=== PATIENT | female | born 1975 | race Caucasian/White ===

== ENCOUNTER → 2016-08-13 | Outpatient (CLI) | payer OTHER ==
[2015-05-26 11:30] VITALS: BP 113/74
[~2016-08-13] MED LIST: BACL10TA PO; ESTR2TAB PO; LOSA100T6 PO; MULT-206 PO; ONDA8TAB9 PO; PROG100C2 PO; [UNRECOGNIZED DRUG - CODE] IM; [UNRECOGNIZED DRUG - CODE] PO
--- NOTE | 2016-08-13 14:08 | KCIC ---
PROCEDURE MR of the right knee HISTORY Right knee pain medially and laterally. Pain for weeks. COMPARISON Report is available from prior study of March 04, 2011, but only limited images are available from that exam. FINDINGS Radial tear at the posterior horn and root of the medial meniscus, measures 10 millimeter wide. Remaining meniscus is distorted, and extruded from the joint compartment. No evidence of a lateral meniscal tear. Anterior and posterior cruciate ligaments are intact. Medial collateral ligament intact. Iliotibial band unremarkable. Fibular collateral ligament, biceps femoris tendon and popliteus tendon are intact. Extensor mechanism is intact. 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 Small full-thickness articular cartilage defect at the weight-bearing lateral femoral condyle measures 6 millimeters AP by 4 millimeters wide. Moderate patellofemoral joint chondromalacia. No bone lesion or acute fracture. No acute soft tissue injury. Minimal anterior subcutaneous edema. Large joint effusion. IMPRESSION 1. Medial meniscal tear. Only limited images available from prior study, but this does appear to be a new finding. 2. 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 This may be slightly progressed at the medial compartment. 3. Small full-thickness articular cartilage defect of the weight-bearing lateral femoral condyle, not seen on the prior study. Electronically signed by: Kai Christensen MD (August 13, 2016 14:07:30)
== END | disposition home or self-care (01) ==
LOC: KCIC MRI 11:53
PROVIDERS: ATTEND Orthopaedic Surgery
DX: M25.561 Pain in right knee (principal)
CPT/HCPCS: 73721

== ENCOUNTER 2016-09-15 23:01 | Emergency (ER) | payer OTHER ==
[~2016-09-15] VITALS: Ht 167.6 cm; Wt 122.5 kg
[~2016-09-15 23:01] MED LIST changes: +OXYC-317 PO; -[UNRECOGNIZED DRUG - CODE] PO
[2016-09-15] MEDS ORDERED: ONDANSETRON PF 4 MG/2 ML VIAL. IV ONE (23:30)
--- NOTE | 2016-09-15 23:37 | PHYS DOC ---
Past Medical History Past Medical History: Hypertension Past Surgical History: Cholecystectomy, Hysterectomy, Other Additional Past Surgical Histo: Rt.elbow,culposcopy Alcohol Use: Rarely Drug Use: None Adult General Chief Complaint Chief Complaint: POST-OP PROBLEM HPI HPI Patient is a 41 year old female who presents with right calf pain. Patient is 2 weeks status post right knee arthroscopic meniscus repair by Dr. Kenney. States today she had onset of severe pain to right calf radiating to right thigh. She felt short of breath today, denies chest pain. Denies any new knee pain although she has been having pain since time of surgery. Denies fevers or chills , cough, erythema/warmth/swelling of the knee, calf swelling, purulent drainage from incision. She denies history of DVT or PE. No recent travel, takes estrogen status post hysterectomy and oophorectomy, nonsmoker. PCP is Dr. Hernández. Review of Systems Review of Systems Constitutional: Denies fever or chills HENT: Denies nasal congestion or sore throat Respiratory: Denies cough or shortness of breath Cardiovascular: Denies chest pain or edema GI: Denies abdominal pain, nausea, vomiting Musculoskeletal: Reports right lower extremity pain Integument: Denies rash or skin lesions Neurologic: Denies headache, focal weakness or sensory changes Current Medications Current Medications Current Medications Medications (Trade) Dose Ordered Sig/Dashawn Start Time Stop Time Status Last Admin Dose Admin Acetaminophen/ Hydrocodone Bitart (Lortab 5/325) 2 tab 1X ONCE 09/16/16 02:15 09/16/16 02:16 DC 09/16/16 02:14 2 TAB Fentanyl Citrate (Fentanyl 2ml Vial) 50 mcg PRN Q15MIN PRN 09/15/16 23:30 09/16/16 02:20 DC 09/16/16 01:15 50 MCG Ondansetron HCl (Zofran) 4 mg 1X ONCE 09/15/16 23:30 09/15/16 23:31 DC 09/15/16 23:44 4 MG Allergies Allergies Allergies Coded Allergies Type Severity Reaction Last Updated Verified Penicillins Allergy Severe 05/25/15 Yes mushroom Allergy Severe 05/25/15 Yes Sulfa (Sulfonamide Antibiotics) Allergy Intermediate 05/25/15 Yes tramadol Allergy Intermediate 05/25/15 Yes lisinopril Allergy Mild 05/25/15 Yes Physical Exam Physical Exam Constitutional: Obese, no acute distress, non-toxic appearance. HENT: Normocephalic, atraumatic, bilateral external ears normal, oropharynx moist, nose normal. Eyes: conjunctiva normal, no discharge. Neck: supple, no stridor. Cardiovascular: RRR, no murmurs, no edema. Lungs & Thorax: LCTAB, no wheezing, no respiratory distress. Abdomen: soft, nontender, nondistended. Skin: Warm, dry, no erythema, no rash. Back: No tenderness. Extremities: Right lower extremity no swelling or deformity, no obvious asymmetry between right and left calf, calf tenderness present on the right, mild swelling of the knee without erythema or warmth or focal tenderness, 2 surgical incisions with intact Steri-Strips, no surrounding erythema/warmth/ swelling, no purulent drainage, DP/PT 2+, sensation intact to the foot Neurologic: Alert and oriented X 3, no focal deficits noted. Psychologic: Affect normal, judgement normal, mood normal. Current Patient Data Vital Signs Vital Signs Date Time Temp Pulse Resp B/P (MAP) Pulse Ox O2 Delivery O2 Flow Rate FiO2 09/16/16 02:00 96 145/83 (103) 97 Room Air 09/16/16 01:30 20 09/15/16 23:13 98.3 98.3 Lab Values Laboratory Tests Test 09/15/16 23:35 White Blood Count 10.0 x10^3/uL (4.0-11.0) Red Blood Count 4.53 x10^6/uL (3.50-5.40) Hemoglobin 12.9 g/dL (12.0-15.5) Hematocrit 38.6 % (36.0-47.0) Mean Corpuscular Volume 85 fL (79-100) Mean Corpuscular Hemoglobin 29 pg (25-35) Mean Corpuscular Hemoglobin Concent 34 g/dL (31-37) Red Cell Distribution Width 14.7 % (11.5-14.5) H Platelet Count 363 x10^3/uL (140-400) Neutrophils (%) (Auto) 65 % (31-73) Lymphocytes (%) (Auto) 26 % (24-48) Monocytes (%) (Auto) 7 % (0-9) Eosinophils (%) (Auto) 1 % (0-3) Basophils (%) (Auto) 1 % (0-3) Neutrophils # (Auto) 6.4 x10^3uL (1.8-7.7) Lymphocytes # (Auto) 2.6 x10^3/uL (1.0-4.8) Monocytes # (Auto) 0.7 x10^3/uL (0.0-1.1) Eosinophils # (Auto) 0.1 x10^3/uL (0.0-0.7) Basophils # (Auto) 0.1 x10^3/uL (0.0-0.2) Prothrombin Time 13.8 SEC (11.7-14.0) Prothrombin Time INR 1.1 (0.8-1.1) PTT 29 SEC (24-38) Sodium Level 139 mmol/L (136-145) Potassium Level 3.8 mmol/L (3.5-5.1) Chloride Level 101 mmol/L (98-107) Carbon Dioxide Level 30 mmol/L (21-32) Anion Gap 8 (6-14) Blood Urea Nitrogen 9 mg/dL (7-20) Creatinine 0.8 mg/dL (0.6-1.0) Estimated GFR (Cockcroft-Gault) 79.4 Glucose Level 127 mg/dL (70-99) H Calcium Level 9.1 mg/dL (8.5-10.1) Laboratory Tests 09/15/16 23:35 Laboratory Tests 09/15/16 23:35 EKG EKG Interpreted by me: Normal sinus rhythm rate 91, no ST elevation, T waves inverted in leads V1 and V2 without ST depression, normal intervals, no ectopy. [] Radiology/Procedures Radiology/Procedures PROCEDURE: VENOUS LOWER EXTREMITY RIGHT Right lower extremity venous Doppler: Reason for examination: Right calf pain. Status post knee surgery on 09/06/2016. The right lower extremity venous system was evaluated from the common femoral and greater saphenous veins distally to the calf veins with grayscale imaging, color-flow imaging and spectral analysis. There is normal blood flow. There is no evidence of deep venous thrombosis. There is normal response of the venous system to compression and augmentation. IMPRESSION: No deep venous thrombosis in the right lower extremity. Electronically signed by: Meme Benites MD (09/16/2016 1:29 AM) DICTATED and SIGNED BY: MEME BENITES MD DATE: 09/16/16 0128 Chest x-ray: Interpreted by me: Mild cardiomegaly, no infiltrate, no pneumothorax[] Course & Med Decision Making Course & Med Decision Making Pertinent Labs and Imaging studies reviewed. (See chart for details) Patient presents with calf pain after recent surgery. Gave pain medication. Ordered ultrasound to evaluate for DVT which was negative. She felt short of breath. Initially tachycardic at 102. Improved to less than 100 with treatment of pain. In the absence of DVT & with normalization of heart rate with normal oxygen saturation, I have very low suspicion for PE. She felt better after pain meds here. Recommend rest, elevation, gave prescription for norco for pain. Recommend contacting Dr. Kenney in the morning for follow up appointment. May benefit from repeat ultrasound in 2 days if symptoms persist. Come back for severe chest pain or shortness of breath, signs of septic arthritis, any otherwise worsening condition. Discharged home in stable condition. [] Dragon Disclaimer Dragon Disclaimer This electronic medical record was generated, in whole or in part, using a voice recognition dictation system. Departure Departure Impression: Primary Impression: Lower extremity pain Disposition: 01 HOME, SELF-CARE Condition: STABLE Referrals: LEELA HERNÁNDEZ MD (PCP) Patient Instructions: Deep Vein Thrombosis Additional Instructions: You were seen in the emergency department today for leg pain. The ultrasound did not show blood clot. I am attaching additional information about this condition see you know what to watch for. Take pain medication as needed. No drinking alcohol or driving while taking this medication. Try to keep leg elevated. Please follow-up with Dr. Kenney within 2-3 days if possible. Return to the emergency department first. Shortness of breath or chest pain, any otherwise worsening condition. Scripts Hydrocodone/Apap 5-325 (NORCO 5-325 TABLET) 1 Each Tablet 1 TAB PO PRN Q6HRS Y for PAIN, #10 TAB 0 Refills Prov: MARIANO BUSH MD 09/16/16 MARIANO BUSH MD Sep 15, 2016 23:36
[2016-09-15 23:38] LABS: BASO # 0.1 x10^3/uL (0.0-0.2); BASO % 1 % (0-3); EOS % 1 % (0-3); HEMATOCRIT 38.6 % (36.0-47.0); HEMOGLOBIN 12.9 g/dL (12.0-15.5); LYMPH # 2.6 x10^3/uL (1.0-4.8); LYMPH % 26 % (24-48); MEAN CORPUSCULAR HEMOGLOBIN 29 pg (25-35); MEAN CORPUSCULAR HGB CONC 34 g/dL (31-37); MEAN CORPUSCULAR VOLUME 85 fL (79-100); MONO % 7 % (0-9); NEUT % 65 % (31-73); PLATELET COUNT 363 x10^3/uL (140-400); RED BLOOD COUNT 4.53 x10^6/uL (3.50-5.40); RED CELL DISTRIBUTION WIDTH 14.7 % (11.5-14.5)
[2016-09-15] MEDS: fentaNYL PF VIAL 100 MCG/2 ML VIAL IV PRN (23:44)
[2016-09-15 23:47] LABS: INR 1.1 (0.8-1.1); PROTHROMBIN TIME PATIENT 13.8 SEC (11.7-14.0)
[2016-09-15 23:49] LABS: CALCIUM 9.1 mg/dL (8.5-10.1); CREATININE 0.8 mg/dL (0.6-1.0); GFR 79.4; POTASSIUM 3.8 mmol/L (3.5-5.1)
[2016-09-16] MEDS: fentaNYL PF VIAL 100 MCG/2 ML VIAL IV PRN (01:15)
--- NOTE | 2016-09-16 01:33 | RAD ---
Right lower extremity venous Doppler: Reason for examination: Right calf pain. Status post knee surgery on 09/06/2016. The right lower extremity venous system was evaluated from the common femoral and greater saphenous veins distally to the calf veins with grayscale imaging, color-flow imaging and spectral analysis. There is normal blood flow. There is no evidence of deep venous thrombosis. There is normal response of the venous system to compression and augmentation. IMPRESSION: No deep venous thrombosis in the right lower extremity. Electronically signed by: Meme Tinajero MD (09/16/2016 1:29 AM)
[2016-09-16 02:00] VITALS: BP 145/83
[2016-09-16] MEDS ORDERED: HYDR-971 PO (02:07)
[2016-09-16] MEDS ORDERED: HYDROcodone/APAP 5/325MG 1 TAB TABLET PO ONE (02:15)
--- NOTE | 2016-09-16 06:23 | EKG ---
[facility] [address] [place] [address] Test Date: 2016-09-15 Test Time: 23:45:32 Pat Name: LENORE SÁNCHEZ Department: Room: Gender: F [employer]: : 1975 Requested By: MARIANO BUSH Order Number: [id number] Reading MD: Edith Jiménez Measurements Intervals [place] Rate: 91 P: 46 CO: 148 QRS: 48 QRSD: 86 T: 53 QT: 346 QTc: 427 Interpretive Statements SINUS RHYTHM NORMAL ECG RI6.01 Compared to ECG 05/16/2015 15:40:59 No significant changes Electronically Signed On 09-19-2016 22:15:50 CDT by Edith Jiménez
--- NOTE | 2016-09-16 07:26 | RAD ---
Portable chest, 09/15/2016: History: Shortness of breath Comparison is made to a study from 05/16/2015. The heart size and pulmonary vascularity are normal. No pulmonary infiltrates are seen. There is no evidence of pleural fluid. IMPRESSION: No acute cardiopulmonary abnormality is detected.
== END 2016-09-16 02:19 | disposition home or self-care (01) ==
LOC: ER 23:01
DX: M79.661 Pain in right lower leg (principal); R00.0 Tachycardia, unspecified; I10 Essential (primary) hypertension; E66.9 Obesity, unspecified; Z88.0 Allergy status to penicillin; Z90.49 Acquired absence of other specified parts of digestive tract; Z90.710 Acquired absence of both cervix and uterus; Z98.890 Other specified postprocedural states; Z88.5 Allergy status to narcotic agent; Z88.8 Allergy status to other drugs, medicaments and biological substances; Z88.2 Allergy status to sulfonamides; Z91.018 Allergy to other foods; Z68.41 Body mass index [BMI] 40.0-44.9, adult
CPT/HCPCS: 36415; 71010; 80048; 85027; 85610; 85730; 93005; 93971; 96374; 96375; 96376; 99285; J2405; J3010

== ENCOUNTER → 2017-06-25 | Outpatient (CLI) | payer OTHER | END | disposition home or self-care (01) | LOC: KCIC MAMMO 12:43 | DX: Z12.31 Encounter for screening mammogram for malignant neoplasm of breast (principal) | CPT/HCPCS: 77067 ==

== ENCOUNTER → 2018-03-10 | Outpatient (CLI) | payer OTHER ==
[~2018-03-10] MED LIST changes: +HYDR-3164 PO; -LOSA100T6 PO; +LOSA100T7 PO
--- NOTE | 2018-03-10 12:03 | RAD ---
EXAM: Right lower extremity venous Doppler sonogram. HISTORY: Pain and swelling. TECHNIQUE: Vera scale and color Doppler sonographic evaluation of the right lower extremity veins with spectral waveform analysis was performed. FINDINGS: There is normal color flow, normal compressibility and there are normal spectral waveforms in the common femoral, superficial femoral, popliteal, posterior tibial and greater saphenous veins. IMPRESSION: No Doppler evidence of lower extremity deep venous thrombosis. Electronically signed by: Kendal Rodriguez MD (03/10/2018 11:59 AM) [id number]
== END | disposition home or self-care (01) ==
LOC: US 11:09
PROVIDERS: ATTEND Orthopaedic Surgery
DX: M79.89 Other specified soft tissue disorders (principal)
CPT/HCPCS: 93971

== ENCOUNTER → 2018-07-01 | Outpatient (CLI) | payer OTHER ==
[~2018-07-01] MED LIST changes: +CONTRAST GIVEN. MC PRN; +IOHEXOL 240 MG/ML 50ML VIAL. PO ONE; +IOHEXOL 300 MG/ML 100ML VIAL. IV ONE; +LOSA100T14 PO; -LOSA100T7 PO
--- NOTE | 2018-07-01 14:23 | KCIC ---
EXAM: CT Abdomen and Pelvis with IV contrast CLINICAL HISTORY: History of diverticulitis. Left lower quadrant abdominal pain. COMPARISON: none TECHNIQUE: Helical CT of the abdomen and pelvis was performed following the administration of intravenous contrast. Axial, coronal and sagittal reformatted images were generated. PQRS compliance statement - One or more of the following individualized dose reduction techniques were utilized for this study: 1. Automated exposure control 2. Adjustment of the mA and/or kV according to patient size 3. Use of iterative reconstruction technique FINDINGS: Exam is mildly limited given CT beam attenuation and quantum mottling from associated prominence overlying soft tissues. Lower chest: Linear opacities in the lingula and lower lobes likely scarring/atelectasis. Lung bases are otherwise clear. Abdomen and Pelvis: Relative hepatic hypodensity is most consistent with hepatic steatosis. The liver is enlarged measuring 19.4 cm in length. Accounting for postcholecystectomy change, no biliary ductal dilatation. Spleen is unremarkable. Adrenal glands and pancreas are unremarkable. Symmetric nephrograms. No focal renal lesion. No hydronephrosis. Appendix is normal. No small or large bowel dilatation. Moderate colonic stool content. Small fat-containing periumbilical hernia. No abdominal or pelvic ascites. No abdominal or pelvic lymphadenopathy. Bladder is compressed. Aorta is normal in caliber throughout. 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 IMPRESSION: 1. No evidence for acute appendicitis. 2. No evidence for bowel obstruction 3. Moderate colonic stool content. No definite associated diverticulitis or colitis. 4. Hepatomegaly and hepatic steatosis. Electronically signed by: Orville Houser MD (07/01/2018 2:20 PM) [facility]
--- NOTE | 2018-07-01 16:26 | KCIC ---
CHEST PA LATERAL CLINICAL INDICATION: Persistent cough COMPARISON: None FINDINGS: Heart is normal in size. Prominent bilateral bronchovascular markings are seen. No focal consolidation. No pneumothorax or pleural effusion. Visualized bony thorax within normal limits. IMPRESSION: Mild bronchitis. Electronically signed by: Emeka Clifford DO (07/01/2018 4:23 PM) [facility]
== END | disposition home or self-care (01) ==
LOC: KCIC CT 12:43
PROVIDERS: ATTEND Physician Assistant Medical
DX: K76.0 Fatty (change of) liver, not elsewhere classified (principal); K42.9 Umbilical hernia without obstruction or gangrene; J40 Bronchitis, not specified as acute or chronic; R16.0 Hepatomegaly, not elsewhere classified; I10 Essential (primary) hypertension; Z87.19 Personal history of other diseases of the digestive system
CPT/HCPCS: 71046; 74177; Q9966; Q9967

== ENCOUNTER 2018-10-13 05:51 | Day surgery (SDC) | payer OTHER ==
[~2018-10-13] VITALS: Ht 165.1 cm; Wt 127.8 kg
[~2018-10-13 05:51] MED LIST changes: -CONTRAST GIVEN. MC PRN; +ESTR-9 TD; +HYDR-2765 PO; +HYDR10SY16 PO; -IOHEXOL 240 MG/ML 50ML VIAL. PO ONE; -IOHEXOL 300 MG/ML 100ML VIAL. IV ONE; +LOSA1TAB25 PO; +MELO15TA23 PO; +OMEP20TA8 PO; +PROG100C10 PO; -PROG100C2 PO
[2018-10-13] MEDS ORDERED: CLINDAMYCIN 900MG PREMIX 50 ML IV PRN (06:00)
[2018-10-13] MEDS ORDERED: BUPIVACAINE 0.25% 50 ML VIAL. ONE (06:03)
[2018-10-13] MEDS ORDERED: EPINEPHrine VIAL 30 MG/30 ML VIAL ONE (06:03)
[2018-10-13] MEDS ORDERED: IV RINGERS,LACTATED 1000ML 1,000 ML IV SCH (07:00)
[2018-10-13] MEDS ORDERED: ONDANSETRON PF 4 MG/2 ML VIAL. IV PRN (07:00)
[2018-10-13] MEDS ORDERED: fentaNYL PF VIAL 100 MCG/2 ML VIAL IV PRN ×2 (07:00)
[2018-10-13] MEDS ORDERED: PROCHLORPERAZINE 10 MG/2 ML VIAL. IV PRN (07:00)
[2018-10-13] MEDS ORDERED: LIDOCAINE 1% PF 2 ML VIAL. ID PRN (07:00)
[2018-10-13] MEDS ORDERED: MIDAZOLAM HCL/PF 2 MG/2 ML VIAL. ONE (07:02)
[2018-10-13] MEDS ORDERED: fentaNYL PF VIAL 100 MCG/2 ML VIAL ONE ×2 (07:02→09:01)
[2018-10-13] MEDS ORDERED: PHENYLEPHRINE in 0.9% NACL PF 1 MG/10 ML SYRINGE. IV ONE (07:03)
[2018-10-13] MEDS ORDERED: ONDANSETRON PF 4 MG/2 ML VIAL. ONE (07:03)
[2018-10-13] MEDS ORDERED: DEXAMETHASONE SOD PHOS 4 MG/ML VIAL ONE (07:03)
[2018-10-13] MEDS ORDERED: LIDOCAINE 2% PF 5 ML VIAL. ONE (07:03)
[2018-10-13] MEDS ORDERED: PROPOFOL 20 ML IV ONE (07:03)
--- NOTE | 2018-10-13 09:01 | PDOC4 ---
Operative Note Operative Note Date of Procedure: October 13, 2018 Preoperative Diagnosis: right knee, painful total knee arthroplasty T84.84XA Postoperative Diagnosis: same Procedures Performed: right knee arthroscopy with synovectomy CPT 90271 Surgeon: � Tremayne Kenney MD Anesthesia: General Estimated Blood Loss: 5 mL Specimens: � Right knee synovial fluid for aerobic, anaerobic, fungal, and AFB Drains: none Complications: none Tourniquet time: � 28 minutes Findings: Synovitis anteriorly which was resected, and thick medial plica which was resected along with meniscal remnants which seemed to be impinging at the tibiofemoral joint medially and laterally and were resected. The implants are also well fixed and stable. There is enough laxity to allow scope examination of the tibiofemoral joint similar to a [place] knee, but may indicate laxity of the knee arthroplasty. Indications for Procedure: The patient is a 43-year-old previous right total knee arthroplasty. She now has some mechanical symptoms and popping, and on examination she has synovitis anteriorly. An aspiration was attempted in the office but I did not retrieve any fluid. She also has a mild sensation of instability, and we can further evaluate that arthroscopically, although she knows where not prepared today to do any revision. I recommended arthroscopic synovectomy and scar tissue removal, possible plica excision and similar anterior fat pad synovectomy to help relieve her symptoms, and to take an arthroscopic specimen to rule out infection. We talked about the risks and benefits of proceeding with an arthroscopic proc edure. We talked about potential risks of ongoing pain, bleeding, infection, blood clots, continued symptoms requiring additional surgery or other potential surgical or anesthetic complications. All of the patient's questions about surgery were answered and she desired to proceed. Written consent was obtained. Description of Operation: The patient was identified in the preoperative holding area. The correct right knee was marked by me. The patient was taken to the operating room, where a general anesthetic was used. Preoperative antibiotics were given intravenously. A tourniquet was placed on the upper thigh. A time-out procedure was performed. The limb was prepared sterile fashion and sterile drapes were applied. �The limb was exsanguinated with an Esmarch bandage and the tourniquet was inflated to 350 mm Hg. exam under anesthesia showed slight varus/valgus laxity 3-4 mm, as well as anterior drawer translation of 4 mm at 90 degrees of flexion. Lateral and medial arthroscopy portals were established using her previous arthroscopy portals. Synovial fluid was retrieved, approximately 5 mL, which was sent in specimen cup for aerobic, anaerobic, fungal, and AFB. The medial tibiofemoral joint showed thick anterior plica, and there were some meniscal synovitis remnants which seemed to be impinging at the medial tibiofemoral joint. There is enough laxity to allow the scope to visualize the tibial polyethylene, similar to what is seen in a [place] knee, perhaps 4 mm of opening with valgus stress. The thickened scarred plica synovium was excised with a basket forceps and the shaver, and the remaining meniscal remnants and synovium were removed from the tibiofemoral joint with the shaver. There was no mechanical breakdown or any noticeable wear of the polyethylene or the femoral component. The intercondylar notch showed an intact posterior from the Journey II knee, and no loose bodies. The lateral tibiofemoral joint again showed meniscal remnant synovitis, and this was removed with a shaver. There is enough laxity to allow the arthroscope to visualize the tibial polyethylene, similar to what is seen in a [place] knee, well balanced with the medial side. The patellofemoral joint showed synovitis at the distal pole of the patella and this was resected with the basket forceps and with the motorized shaver. The patellar component is well fixed and stable to probing. There is no appreciable wear or any breakdown of the patellar polyethylene component. I did not see any loose cement fragments. There were no apparent loose bodies. The suprapatellar pouch medial lateral gutters were clear of cement fragments or loose bodies. Copious irrigation was used, and the knee was drained of fluid. The incisions were closed with 3-0 Prolene interrupted suture. 50 mL of 0.25% bupivacaine with epinephrine was injected. A bulky sterile dressing was applied and the tourniquet was released. Needle and sponge counts were correct and there were no apparent complications. Tremayne Kenney MD 10/13/2018 8:59 AM TREMAYNE KENNEY MD Oct 13, 2018 09:01
[2018-10-13] MEDS ORDERED: OXYC1TAB15 PO (09:11)
[2018-10-13] MEDS ORDERED: PROM25TA10 PO (09:13)
[2018-10-13 09:47] VITALS: BP 124/74
[2018-10-13] MEDS ORDERED: oxyCODONE/APAP 5/325 1 TAB TABLET PO ONE ×2 (10:00)
== END 2018-10-13 10:30 | disposition home or self-care (01) ==
LOC: SURG 05:51
PROVIDERS: ATTEND Orthopaedic Surgery
DX: M65.861 Other synovitis and tenosynovitis, right lower leg (principal); M25.861 Other specified joint disorders, right knee; M67.51 Plica syndrome, right knee; I10 Essential (primary) hypertension; Z90.710 Acquired absence of both cervix and uterus; Z90.49 Acquired absence of other specified parts of digestive tract; Z96.651 Presence of right artificial knee joint
CPT/HCPCS: 29876; 87071; 87075; 87102; 87116; A7015; C1782; J0171; J0780; J1100; J2001; J2250; J2370; J2405; J2704; J3010; J3490

== ENCOUNTER → 2019-03-02 | Outpatient (CLI) | payer MEDICAID ==
[~2019-03-02] MED LIST changes: +OXYC1TAB15 PO; +PROM25TA10 PO
--- NOTE | 2019-03-02 19:52 | KCIC ---
Bilateral digital screening mammograms: Reason for examination: Routine screening. Comparison is made to previous study dated 06/25/2017. Interpretation is made with the benefit of CAD. The skin and nipples show no abnormalities. No abnormal lymph nodes are seen. The breast parenchyma is predominantly fatty. (Breast density: Category A.) There are no dominant masses, suspicious calcifications or architectural distortions. Impression: No evidence of malignancy. Recommend routine screening. BI-RADS Category 1: Negative. "Our facility is accredited by the [employer] Mammography Program." This patient's information has been entered into a reminder system for the patient to be notified with the results of her examination and a target date for the next mammogram. Electronically signed by: Meme Tinajero MD (03/02/2019 7:49 PM) [id number]
== END | disposition home or self-care (01) ==
LOC: KCIC MAMMO 10:50
PROVIDERS: ATTEND Family Medicine
DX: Z12.31 Encounter for screening mammogram for malignant neoplasm of breast (principal)
CPT/HCPCS: 77067

== ENCOUNTER 2019-11-28 18:58 | Emergency (ER) | payer MEDICAID ==
[~2019-11-28] VITALS: Ht 165.1 cm; Wt 108.0 kg
[~2019-11-28 18:58] MED LIST changes: +METF500T16 PO; +SITA100T PO; +SITA50TA PO
[2019-11-28] MEDS ORDERED: HYDROmorphone 2 MG/ML VIAL IV ONE (19:45)
--- NOTE | 2019-11-28 19:45 | PHYS DOC ---
Past Medical History Past Medical History: Diabetes-Type II, GERD, Hypertension Past Surgical History: Cholecystectomy, Hysterectomy, Other Additional Past Surgical Histo: Rt.elbow,culposcopy Smoking Status: Never Smoker Alcohol Use: Rarely Drug Use: None General Adult EDM: Chief Complaint: ABDOMINAL PAIN HPI: HPI: Patient is a 44 year old female who presents with lower abdominal pain. Patient reports that about 10 days ago she began to have pain in the lower abdomen. At first her and her doctor thought she was suffering from a urinary tract infection. However the pain moved on Friday and became centered around the left side. She denied any fever, chills or sweats does complain of some nausea with the decrease in appetite but denies diarrhea, melena or hematochezia. She vomited 2 or 3 days ago x1 but since then has not. Patient has been changed to 2 antibiotics Cipro and Flagyl and has been on this medica tion for 48 hours. Patient has not improved and continues to have pain. She is here for further evaluation and possible admission. Review of Systems: Review of Systems: Constitutional: Denies fever or chills. [] Eyes: Denies change in visual acuity. [] HENT: Denies nasal congestion or sore throat. [] Respiratory: Denies cough or shortness of breath. [] Cardiovascular: Denies chest pain or edema. [] GI: See HPI [] : Denies dysuria. [] Musculoskeletal: Denies back pain or joint pain. [] Integument: Denies rash. [] Neurologic: Denies headache, focal weakness or sensory changes. [] Endocrine: Denies polyuria or polydipsia. [] Lymphatic: Denies swollen glands. [] Psychiatric: Denies depression or anxiety. [] Heart Score: Risk Factors: Risk Factors: DM, Current or recent (<one month) smoker, HTN, HLP, family history of CAD, obesity. Risk Scores: Score 0 - 3: 2.5% MACE over next 6 weeks - Discharge Home Score 4 - 6: 20.3% MACE over next 6 weeks - Admit for Clinical Observation Score 7 - 10: 72.7% MACE over next 6 weeks - Early Invasive Strategies Allergies: Allergies: Allergies Coded Allergies Type Severity Reaction Last Updated Verified Penicillins Allergy Severe HIVES,HARD TO BREATH 10/13/18 Yes Sulfa (Sulfonamide Antibiotics) Allergy Severe SAME WITH PCN PLUS THROAT SHUT 05/04/19 Yes amoxicillin Allergy Severe HIVES, HARD TO BREATH 05/04/19 Yes mushroom Allergy Severe THROAT SHUT DOWN 10/13/18 Yes tramadol Allergy Intermediate BAD HIVES, VOMITING 10/13/18 Yes lisinopril Allergy Mild COUGH 10/13/18 Yes Physical Exam: PE: Constitutional: Well developed, well nourished, no acute distress, non-toxic appearance. [] HENT: Normocephalic, atraumatic, bilateral external ears normal, oropharynx moist, no oral exudates, nose normal. [] Eyes: PERRLA, EOMI, conjunctiva normal, no discharge. [] Neck: Normal range of motion, no tenderness, supple, no stridor. [] Cardiovascular:Heart rate regular rhythm, no murmur [] Lungs & Thorax: Bilateral breath sounds clear to auscultation [] Abdomen: Normal bowel sounds, soft, tenderness in the left lower quadrant without guarding or rebound, no hepatosplenomegaly or masses. [] Skin: Warm, dry, no erythema, no rash. [] Back: No tenderness, no CVA tenderness. [] Extremities: No tenderness, no cyanosis, no clubbing, ROM intact, no edema. [] Neurologic: Alert and oriented X 3, normal motor function, normal sensory function, no focal deficits noted. [] Psychologic: Affect normal, judgement normal, mood normal. [] Current Patient Data: Labs: Laboratory Tests Test 11/28/19 19:21 POC Urine HCG, Qualitative Hcg negative (Negative) Vital Signs: Vital Signs Date Time Temp Pulse Resp B/P (MAP) Pulse Ox O2 Delivery O2 Flow Rate FiO2 11/28/19 19:17 97.7 75 16 143/70 (94) 100 Room Air 97.7 EKG: EKG: [] Radiology/Procedures: Radiology/Procedures: [] Course & Med Decision Making: Course & Med Decision Making Pertinent Labs and Imaging studies reviewed. (See chart for details) 2111-patient was seen and reevaluated. Patient continues to complain of pain. However at this time her laboratory and CT work-up is not revealing for an acute exigent medical or surgical problem. In addition her exam was benign. I discussed with her reasons to return, treatment plan and need for follow-up. Josiane to continue the antibiotics that she is on to finish that course. [] Mirza Disclaimer: Mirza Disclaimer: This electronic medical record was generated, in whole or in part, using a voice recognition dictation system. Departure Departure Impression: Primary Impression: Left lower quadrant abdominal pain Disposition: HOME, SELF-CARE Condition: STABLE Referrals: LEELA HERNÁNDEZ MD (PCP) Patient Instructions: Abdominal Pain (Nonspecific) Additional Instructions: Return for fever, change in abdominal pain, persistent nausea or vomiting, rectal bleeding, black poop. Please follow-up with your physician on Friday. Justicifation of Admission Dx: Justifications for Admission: Justification of Admission Dx: N/A JOVANNI ALMANZA MD Nov 28, 2019 19:45
[2019-11-28 19:50] LABS: BASO # 0.1 x10^3/uL (0.0-0.2); BASO % 1 % (0-3); EOS # 0.2 x10^3/uL (0.0-0.7); EOS % 2 % (0-3); HEMATOCRIT 40.3 % (36.0-47.0); HEMOGLOBIN 13.7 g/dL (12.0-15.5); LYMPH # 3.4 x10^3/uL (1.0-4.8); LYMPH % 33 % (24-48); MEAN CORPUSCULAR HEMOGLOBIN 29 pg (25-35); MEAN CORPUSCULAR HGB CONC 34 g/dL (31-37); MEAN CORPUSCULAR VOLUME 84 fL (79-100); MONO # 0.8 x10^3/uL (0.0-1.1); MONO % 8 % (0-9); NEUT # 5.8 x10^3/uL (1.8-7.7); NEUT % 57 % (31-73); PLATELET COUNT 465 x10^3/uL (140-400); RED CELL DISTRIBUTION WIDTH 15.2 % (11.5-14.5); WHITE BLOOD COUNT 10.2 x10^3/uL (4.0-11.0)
[2019-11-28 19:52] LABS: BILIRUBIN,URINE NEGATIVE (NEG); CLARITY,URINE CLEAR; COLOR,URINE YELLOW; NITRITE,URINE NEGATIVE (NEG); PH,URINE 6.5 (<5.0-8.0); PROTEIN,URINE NEGATIVE (NEG-TRACE); UROBILINOGEN,URINE 0.2 mg/dL (0.2 mg/dL)
[2019-11-28] MEDS ORDERED: MEROPENEM 1 GM in IV NORMAL SALINE 100ML 100 ML IV SCH (20:00)
[2019-11-28] MEDS ORDERED: ONDANSETRON PF 4 MG/2 ML VIAL. IVP ONE (20:00)
[2019-11-28 20:12] LABS: CALCIUM 8.6 mg/dL (8.5-10.1); CREATININE 1.1 mg/dL (0.6-1.0); GFR 54.2; POTASSIUM 3.5 mmol/L (3.5-5.1)
[2019-11-28 20:17] LABS: ALBUMIN 3.7 g/dL (3.4-5.0); ALBUMIN/GLOBULIN RATIO 0.9 (1.0-1.7); TOTAL BILIRUBIN 0.2 mg/dL (0.2-1.0); TOTAL PROTEIN 7.7 g/dL (6.4-8.2)
[2019-11-28] MEDS ORDERED: CONTRAST GIVEN. MC PRN (20:30)
[2019-11-28] MEDS ORDERED: IOHEXOL 300 MG/ML 100ML VIAL. IV ONE (20:30)
[2019-11-28 20:36] LABS: BACTERIA,URINE FEW /HPF (0-FEW); RBC,URINE OCC /HPF (0-2); SQUAMOUS EPITHELIAL CELL,UR FEW /LPF; WBC,URINE OCC /HPF (0-4)
--- NOTE | 2019-11-28 20:57 | RAD ---
CT ABD PELV W/ IV CONTRST ONLY History: llq ABD PAIN Comparison: 05/03/2019 Technique: After administration of intravenous contrast, helical CT of the abdomen and pelvis was performed from the lung bases through the ischial tuberosities. Coronal and sagittal reconstructions were obtained. 60 mL of Omnipaque 300 were used. One or more of the following dose reduction techniques were utilized: Automated exposure control (AEC), Adjustment of mA and/or kV according to patient size, Use of iterative reconstruction technique such as ASiR, CT scan done according to ALARA and image gently/image wisely Findings: The visualized lung bases are clear. The liver, pancreas, spleen, and bilateral adrenal glands are normal. Cholecystectomy. Symmetric renal enhancement. There is no focal renal mass. There is no hydronephrosis. The visualized loops of small bowel are normal. The visualized loops of large bowel are normal. There is no evidence of bowel obstruction. Appendix is normal. There is no free fluid. There is no mesenteric or retroperitoneal adenopathy. The abdominal aorta is normal in caliber. Pelvis Findings: Urinary bladder is decompressed. Hysterectomy. No pelvic free fluid. There is no pelvic or inguinal adenopathy. There is no acute bony abnormality. IMPRESSION: No acute findings. Electronically signed by: Skinny Lopez MD (11/28/2019 8:54 PM) [facility]
[2019-11-28 21:30] VITALS: BP 158/101
== END 2019-11-28 21:35 | disposition home or self-care (01) ==
LOC: ER 18:58
DX: R10.32 Left lower quadrant pain (principal); R11.2 Nausea with vomiting, unspecified; R63.0 Anorexia; E11.9 Type 2 diabetes mellitus without complications; K21.9 Gastro-esophageal reflux disease without esophagitis; I10 Essential (primary) hypertension; Z90.710 Acquired absence of both cervix and uterus; Z90.49 Acquired absence of other specified parts of digestive tract; Z98.890 Other specified postprocedural states; Z88.0 Allergy status to penicillin; Z88.1 Allergy status to other antibiotic agents; Z88.2 Allergy status to sulfonamides; Z91.018 Allergy to other foods; Z88.8 Allergy status to other drugs, medicaments and biological substances
CPT/HCPCS: 36415; 74177; 80053; 81001; 81025; 83690; 85025; 96365; 96375; 99285; J1170; J2185; J2405; P9612; Q9967